=== PATIENT | male | born 1990 | race Caucasian/White ===

== ENCOUNTER 2019-06-10 13:39 | Emergency (ER) | payer BC, OTHER ==
[2019-06-10] MEDS ORDERED: Sodium Chloride 0.9% 10 ML Syringe FLUSH PRN (13:51)
[2019-06-10 13:55] VITALS: BP 139/89; PULSE 95
[2019-06-10] MEDS ORDERED: Iopamidol 755 Mg/ML 100 ML Bottle IVPUSH ONE (13:59)
[2019-06-10] MEDS ORDERED: Sodium Chloride 0.9% 10 ML Syringe FLUSH ONE (13:59)
--- NOTE | 2019-06-10 14:31 | EDM.PDOC ---
ED HPI GENERAL MEDICAL PROBLEM - General Chief Complaint: Trauma Stated Complaint: BODY INJURY/WORK RELATED Time Seen by Provider: 06/10/19 13:48 Source of Information: Reports: Patient History Limitations: Reports: No Limitations - History of Present Illness INITIAL COMMENTS - FREE TEXT/NARRATIVE: The patient presents with trauma. 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 He does not think he was knocked out. He He does have neck pain, low back pain, chest pain and upper abdominal pain. He has no arm or leg pain. He has no medical problems. He has allergies to anesthesia. He has no fever or chills. He has no numbness or weakness. Onset: Sudden Duration: Minutes: Location: Reports: Neck, Chest, Abdomen, Back, Pelvis Quality: Reports: Sharp Severity: Severe Improves with: Reports: Immobilization Worsens with: Reports: Movement Context: Reports: Trauma (Hit by a 400lbs weight) Associated Symptoms: Reports: Chest Pain. Denies: Cough, Fever/Chills, Headaches, Nausea/Vomiting, Shortness of Breath Back Pain Score (Numeric/FACES): 7 - Related Data Allergies Allergy/AdvReac Type Severity Reaction Status Date / Time Anesthesia Allergy Seizure Uncoded 09/15/18 17:47 CDT Home Meds: Home Meds . [No Known Home Meds] 01/15/19 [History] Past Medical History - Past Health History Medical/Surgical History: Denies Medical/Surgical History HEENT History: Reports: None Cardiovascular History: Reports: None Respiratory History: Reports: None Gastrointestinal History: Reports: None Genitourinary History: Reports: None Musculoskeletal History: Reports: None Neurological History: Reports: None Psychiatric History: Reports: Anxiety, Depression, Suicidal Ideation Endocrine/Metabolic History: Reports: None Hematologic History: Reports: None Immunologic History: Reports: None Oncologic (Cancer) History: Reports: None Dermatologic History: Reports: None - Infectious Disease History Infectious Disease History: Reports: Chicken Pox - Past Surgical History Head Surgeries/Procedures: Reports: None HEENT Surgical History: Reports: Tonsillectomy Social & Family History - Family History Family Medical History: Noncontributory - Caffeine Use Caffeine Use: Reports: Coffee Caffeine Use Comment: 1cup every other day Review of Systems - Review of Systems Review Of Systems: See Below Constitutional: Reports: No Symptoms Eyes: Reports: No Symptoms Ears: Reports: No Symptoms Nose: Reports: No Symptoms Mouth/Throat: Reports: No Symptoms Respiratory: Reports: No Symptoms Cardiovascular: Reports: Chest Pain GI/Abdominal: Reports: No Symptoms Genitourinary: Reports: No Symptoms Musculoskeletal: Reports: Neck Pain, Back Pain Skin: Reports: No Symptoms Neurological: Reports: No Symptoms ED EXAM, GENERAL - Physical Exam Exam: See Below Exam Limited By: No Limitations General Appearance: Alert, No Apparent Distress Ears: Other (Pain upon palpation behind the left ear) Nose: Normal Inspection Head: Other (Pain upon palpation behind the left ear) Neck: Tender Lateral, Tender Midline Respiratory/Chest: No Respiratory Distress, Lungs Clear, Normal Breath Sounds, Other (Equal breath sounds) Cardiovascular: Regular Rate, Rhythm, No Edema, No Murmur, Other (Pain upon palpation to the left and right chest with no crepitus) GI/Abdominal: Soft, No Organomegaly, No Mass, Tender (Mild to moderate tenderness to the upper abdomen) Course - Vital Signs Last Recorded V/S: Last Vital Signs Temp 98.2 F 06/10/19 13:53 Pulse 95 06/10/19 13:53 Resp 16 06/10/19 13:53 BP 139/89 06/10/19 13:53 Pulse Ox 95 06/10/19 13:53 - Orders/Labs/Meds Orders: Active Orders 24 hr Category Date Time Status Cardiac Monitoring [RC] . DIRECTED Care 06/10/19 13:51 Active Peripheral IV Care [RC] . DIRECTED Care 06/10/19 13:51 Active CBC WITH AUTO DIFF [HEME] Stat Lab 06/10/19 14:00 Results Sodium Chloride 0.9% [Saline Flush] Med 06/10/19 13:51 Active 10 ml FLUSH ASDIRECTED PRN Peripheral IV Insertion Adult [OM.PC] Stat Oth 06/10/19 13:51 Ordered Medication Orders Sodium Chloride (Saline Flush) 10 ml FLUSH ASDIRECTED PRN PRN Reason: Keep Vein Open Last Admin: 06/10/19 14:32 Dose: 10 ml Labs: Laboratory Tests 06/10/19 06/10/19 Range/Units 14:00 14:00 WBC 12.86 H (4.23-9.07) K/mm3 RBC 5.30 (4.63-6.08) M/mm3 Hgb 15.0 (13.7-17.5) gm/dl Hct 42.9 (40.1-51.0) % MCV 80.9 (79.0-92.2) fl MCH 28.3 (25.7-32.2) pg MCHC 35.0 (32.2-35.5) g/dl RDW Std Deviation 38.1 (35.1-43.9) fL Plt Count 342 H (163-337) K/mm3 MPV 9.1 L (9.4-12.3) fl Neut % (Auto) 65.5 (34.0-67.9) % Lymph % (Auto) 25.7 (21.8-53.1) % [place] % (Auto) 7.5 (5.3-12.2) % Eos % (Auto) 0.6 L (0.8-7.0) Baso % (Auto) 0.3 (0.1-1.2) % Neut # (Auto) 8.43 H (1.78-5.38) K/mm3 Lymph # (Auto) 3.30 (1.32-3.57) K/mm3 [place] # (Auto) 0.96 H (0.30-0.82) K/mm3 Eos # (Auto) 0.08 (0.04-0.54) K/mm3 Baso # (Auto) 0.04 (0.01-0.08) K/mm3 Sodium 137 (136-145) mEq/L Potassium 3.8 (3.5-5.1) mEq/L Chloride 102 (98-107) mEq/L Carbon Dioxide 23 (21-32) mEq/L Anion Gap 15.8 H (5-15) BUN 16 (7-18) mg/dL Creatinine 1.2 (0.7-1.3) mg/dL Est Cr Clr Drug Dosing 87.88 mL/min Estimated GFR (MDRD) > 60 (>60) mL/min BUN/Creatinine Ratio 13.3 L (14-18) Glucose 108 H (74-106) mg/dL Calcium 9.2 (8.5-10.1) mg/dL Total Bilirubin 0.2 (0.2-1.0) mg/dL AST 26 (15-37) U/L ALT 43 (16-63) U/L Alkaline Phosphatase 87 (46-116) U/L Total Protein 8.2 (6.4-8.2) g/dl Albumin 4.1 (3.4-5.0) g/dl Globulin 4.1 gm/dL Albumin/Globulin Ratio 1.0 (1-2) Lipase 72 L (73-393) U/L Ethyl Alcohol 0.00 (0.00) gm% Meds: Medications Generic Name Dose Route Start Last Admin Trade Name Freq PRN Reason Stop Dose Admin Sodium Chloride 10 ml 06/10/19 13:51 06/10/19 14:32 Saline Flush FLUSH 10 ml ASDIRECTED PRN Administration Keep Vein Open Discontinued Medications Generic Name Dose Route Start Last Admin Trade Name Freq PRN Reason Stop Dose Admin Iopamidol 100 ml 06/10/19 13:59 06/10/19 14:32 Isovue-370 (76%) IVPUSH 06/10/19 14:00 100 ml ONETIME ONE Administration Sodium Chloride 10 ml 06/10/19 13:59 06/10/19 15:03 Saline Flush FLUSH 06/10/19 14:00 10 ml ONETIME ONE Administration - Re-Assessments/Exams Free Text/Narrative Re-Assessment/Exam: 06/10/19 14:34 I ordered an IV saline lock, labs, UA, CT of his head, cervical spine, chest, abdomen and pelvis. 06/10/19 15:19 His WBC was elevated at 12.86. His anion gap is elevated at 15.8. His lipase is low at 72. His ETOH is 0. The CT of his chest shows nothing acute. The CT of his abdomen and pelvis shows nothing acute. Two adjacent nonobstructing calculi within the right kidney. Fat containing left inguinal hernia. The CT of the cervical spine shows detail slightly limited due to body habitus. Nothing acute is appreciated on CT study of the cervical spine. The CT of his head shows nothing acute. There were no acute changes on CTs. I will discharge him home. Departure - Departure Time of Disposition: 15:25 Disposition: Home, Self-Care 01 Condition: Good Clinical Impression: Kidney stone on right side, Left inguinal hernia Head injury Qualifiers: Encounter type: initial encounter Qualified Code(s): S09.90XA - Unspecified injury of head, initial encounter Cervical strain Qualifiers: Encounter type: initial encounter Qualified Code(s): S16.1XXA - Strain of muscle, fascia and tendon at neck level, initial encounter Chest wall contusion Qualifiers: Encounter type: initial encounter Laterality: unspecified laterality Qualified Code(s): S20.219A - Contusion of unspecified front wall of thorax, initial encounter Lumbar strain Qualifiers: Encounter type: initial encounter Qualified Code(s): S39.012A - Strain of muscle, fascia and tendon of lower back, initial encounter Abdominal wall contusion Qualifiers: Encounter type: initial encounter Qualified Code(s): S30.1XXA - Contusion of abdominal wall, initial encounter - Discharge Information *PRESCRIPTION DRUG MONITORING PROGRAM REVIEWED*: Not Applicable *COPY OF PRESCRIPTION DRUG MONITORING REPORT IN PATIENT IAN: Not Applicable Referrals: PCP,None [Primary Care Provider] - Sam Monahan PA-C [Physician Development Intern] - 1 Week Forms: ED Department Discharge, ED Return to Work/School Form Additional Instructions: Take tylenol or motrin for pain. Drink plenty of water. Ice the areas that hurt for 15 minutes 3 times per day for 2 to 3 days. Please return if you are worse. Sepsis Event Note - Evaluation Sepsis Screening Result: No Definite Risk - Focused Exam Vital Signs: Vital Signs Temp Pulse Resp BP Pulse Ox 06/10/19 13:53 98.2 F 95 16 139/89 95 Date Exam was Performed: 06/10/19 Time Exam was Performed: 15:23 - My Orders Last 24 Hours: My Active Orders 06/10/19 13:51 Cardiac Monitoring [RC] . DIRECTED Peripheral IV Care [RC] . DIRECTED Sodium Chloride 0.9% [Saline Flush] 10 ml FLUSH ASDIRECTED PRN Peripheral IV Insertion Adult [OM.PC] Stat 06/10/19 14:00 CBC WITH AUTO DIFF [HEME] Stat - Assessment/Plan Last 24 Hours: My Active Orders 06/10/19 13:51 Cardiac Monitoring [RC] . DIRECTED Peripheral IV Care [RC] . DIRECTED Sodium Chloride 0.9% [Saline Flush] 10 ml FLUSH ASDIRECTED PRN Peripheral IV Insertion Adult [OM.PC] Stat 06/10/19 14:00 CBC WITH AUTO DIFF [HEME] Stat
--- NOTE | 2019-06-10 15:06 | CT ---
CT cervical spine Technique: Multiple axial sections were obtained from above C1 level inferiorly through the bottom of T2. Reconstructed sagittal and coronal images were obtained. Findings: Details within the mid and lower cervical spine are diminished due to body habitus. Comparison: No prior cervical spine imaging. Findings: Vertebral body heights are maintained. Disc spaces are fairly well preserved. No discrete fracture or abnormal subluxation is seen. No bony central or bony neural foraminal stenosis is seen. Impression: 1. Detail slightly limited due to body habitus. 2. Nothing acute is appreciated on CT study of the cervical spine. Diagnostic code #2
--- NOTE | 2019-06-10 15:06 | CT ---
CT chest Technique: Multiple axial sections were obtained from above the lung apices inferiorly through the lung bases. Intravenous contrast was utilized. Comparison: No prior chest imaging. Findings: Aorta and pulmonary arteries appear normally opacified. No aneurysm is identified. Mediastinum and hilar regions appear within normal limits. No mediastinal hematoma is seen. Slight increased density within the superior mediastinum is seen felt to represent residual thymic tissue. No axillary adenopathy is seen. Lungs show no acute parenchymal change. No pulmonary contusion or pleural effusions are seen. No pneumothorax is identified. Bone window settings were reviewed no acute osseous finding is appreciated. Impression: 1. Nothing acute is seen on CT study of the chest. Diagnostic code #1 CT abdomen and pelvis Technique: Multiple axial sections were obtained from above the dome of the diaphragm inferiorly through the pubic symphysis. Intravenous contrast was utilized. No oral contrast has been given. Comparison: No prior abdominal imaging. Findings: Liver contains no focal abnormality. Spleen appears within normal limits. Adrenal glands show no nodule. Pancreas is within normal limits. Kidneys show symmetric contrast enhancement. Several nonobstructing calculi are seen within the right kidney. Gallbladder contains no calcified gallstones. Aorta shows no aneurysm. No retroperitoneal adenopathy or mesenteric abnormalities are seen. No pelvic mass or adenopathy is seen. No free fluid or inflammatory change is seen. Fat-containing left inguinal hernia is noted. Appendix is seen and is normal in size. Delayed images show contrast within the distal ureters and within the bladder. Bone window settings were reviewed which show no acute osseous finding. Impression: 1. Nothing acute is appreciated on CT study of the abdomen and pelvis. 2. Two adjacent nonobstructing calculi within the right kidney. 3. Fat-containing left inguinal hernia. Diagnostic code #2 This report was dictated in [place] Standard Time
--- NOTE | 2019-06-10 15:07 | CT ---
Head CT Technique: Multiple axial sections through the brain were obtained. Intravenous contrast was not utilized. Comparison: No prior intracranial imaging. Findings: Ventricles along with basal cisterns and sulci over the convexities are within normal limits for the patient's age. No abnormal parenchymal densities are seen. No evidence of intracranial hemorrhage. No midline shift or mass effect is seen. Bone window settings were reviewed. Visualized paranasal sinuses and mastoid sinuses are clear. No acute calvarial abnormality is appreciated. Impression: 1. Nothing acute is appreciated on noncontrast head CT exam. Diagnostic code #1 This report was dictated in [place] Standard Time
--- NOTE | 2019-06-10 15:07 | CT ---
CT lumbar spine Technique: Multiple axial sections through the lumbar spine were obtained. Reconstructed coronal and sagittal images were reviewed. Findings: Slight posterior disc bulge at L5-S1 which is believed to be physiologic. Posterior discs are otherwise contained. Vertebral body heights are maintained. No fracture or subluxation is seen. Impression: 1. Nothing acute is seen on CT study of the lumbar spine. Diagnostic code #1 This report was dictated in [place] Standard Time
== END 2019-06-10 15:43 | disposition home or self-care (01) ==
LOC: JD.ED 13:39
DX: S09.90XA Unspecified injury of head, initial encounter (principal); S16.1XXA Strain of muscle, fascia and tendon at neck level, initial encounter; S39.012A Strain of muscle, fascia and tendon of lower back, initial encounter; S20.219A Contusion of unspecified front wall of thorax, initial encounter; S30.1XXA Contusion of abdominal wall, initial encounter; K40.90 Unilateral inguinal hernia, without obstruction or gangrene, not specified as recurrent; N20.0 Calculus of kidney; Z88.4 Allergy status to anesthetic agent; Z98.890 Other specified postprocedural states; W31.9XXA Contact with unspecified machinery, initial encounter; Y99.0 Civilian activity done for income or pay
CPT/HCPCS: 36415; 70450; 71260; 72125; 72131; 74177; 80053; 80320; 83690; 85025; 99285; Q9967; 99284; G0480

== ENCOUNTER 2019-06-27 01:24 | Emergency (ER) | payer BC ==
[2019-06-27 01:34] VITALS: BP 139/91; PULSE 64
--- NOTE | 2019-06-27 01:46 | EDM.PDOC ---
ED HPI GENERAL MEDICAL PROBLEM - General Chief Complaint: Chest Pain Stated Complaint: CHEST PAIN Time Seen by Provider: 06/27/19 01:37 - History of Present Illness INITIAL COMMENTS - FREE TEXT/NARRATIVE: 28-year-old male presents to the emergency room with chest pain. This is been going on all yesterday and into this morning. It became worse this evening. He is not coughing but bringing up a little bit of blood-tinged sputum. He does not feel nauseated. He is not had any fevers or chills he has not noticed any black or tarry stools. He has not noticed any adolfo blood in his BMs. The patient has not had problems like this in the past. Middle Chest Pain Score (Numeric/FACES): 8 - Related Data Allergies Allergy/AdvReac Type Severity Reaction Status Date / Time Anesthesia Allergy Seizure Uncoded 06/27/19 01:35 Home Meds: Home Meds Pantoprazole Sodium [Protonix] 40 mg PO ASDIRECTED #30 tablet. 06/27/19 [Rx] Sucralfate [Carafate] 1 gm PO ASDIRECTED #24 tablet 06/27/19 [Rx] Past Medical History - Past Health History Medical/Surgical History: Denies Medical/Surgical History HEENT History: Reports: None Cardiovascular History: Reports: None Respiratory History: Reports: None Gastrointestinal History: Reports: None Genitourinary History: Reports: None Musculoskeletal History: Reports: None Neurological History: Reports: None Psychiatric History: Reports: Anxiety, Depression, Suicidal Ideation Endocrine/Metabolic History: Reports: None Hematologic History: Reports: None Immunologic History: Reports: None Oncologic (Cancer) History: Reports: None Dermatologic History: Reports: None - Infectious Disease History Infectious Disease History: Reports: Chicken Pox - Past Surgical History Head Surgeries/Procedures: Reports: None HEENT Surgical History: Reports: Tonsillectomy Social & Family History - Family History Family Medical History: Noncontributory - Caffeine Use Caffeine Use: Reports: Coffee Caffeine Use Comment: 1cup every other day ED ROS GENERAL - Review of Systems Review Of Systems: See Below Constitutional: Reports: No Symptoms HEENT: Reports: No Symptoms Respiratory: Reports: No Symptoms Cardiovascular: Reports: No Symptoms Endocrine: Reports: No Symptoms GI/Abdominal: Denies: Anorexia, Black Stool, Bloody Stool, Decreased Appetite, Hematemesis, Hematochezia : Reports: No Symptoms Musculoskeletal: Reports: No Symptoms ED EXAM, GENERAL - Physical Exam Exam: See Below Exam Limited By: No Limitations General Appearance: Alert, No Apparent Distress Head: Atraumatic, Normocephalic Neck: Normal Inspection, Supple, Non-Tender, Full Range of Motion. No: Lymphadenopathy (L), Lymphadenopathy (R) Respiratory/Chest: No Respiratory Distress, Lungs Clear, Normal Breath Sounds Cardiovascular: Regular Rate, Rhythm, No Edema, No Murmur GI/Abdominal: Normal Bowel Sounds, Soft, Other (The patient has marked tenderness in the epigastric area to a lesser degree the right and left upper quadrants. No lower quadrant discomfort no rigidity rebound or guarding.) Back Exam: Normal Inspection. No: CVA Tenderness (L), CVA Tenderness (R) Extremities: Normal Inspection Course - Vital Signs Last Recorded V/S: Last Vital Signs Temp 36.6 C 06/27/19 01:31 Pulse 64 06/27/19 01:31 Resp 13 06/27/19 01:31 BP 139/91 H 06/27/19 01:31 Pulse Ox 96 06/27/19 01:31 - Orders/Labs/Meds Orders: Active Orders 24 hr Category Date Time Status EKG 12 Lead [EKG Documentation Completion] [RC] URGENT Care 06/27/19 01:47 Active Labs: Laboratory Tests 06/27/19 06/27/19 06/27/19 Range/Units 01:55 01:55 01:55 WBC 10.30 H (4.23-9.07) K/mm3 RBC 5.19 (4.63-6.08) M/mm3 Hgb 14.7 (13.7-17.5) gm/dl Hct 42.3 (40.1-51.0) % MCV 81.5 (79.0-92.2) fl MCH 28.3 (25.7-32.2) pg MCHC 34.8 (32.2-35.5) g/dl RDW Std Deviation 38.1 (35.1-43.9) fL Plt Count 309 (163-337) K/mm3 MPV 8.8 L (9.4-12.3) fl Neutrophils % (Manual) 61 H (40-60) % Band Neutrophils % 0 (0-10) % Lymphocytes % (Manual) 29 (20-40) % Atypical Lymphs % 0 % Monocytes % (Manual) 9 (2-10) % Eosinophils % (Manual) 1 (0.8-7.0) % Basophils % (Manual) 0 L (0.2-1.2) Platelet Estimate Adequate RBC Morph Comment Normal D-Dimer, Quantitative 0.24 (0.19-0.50) mg/L Sodium 137 (136-145) mEq/L Potassium 3.9 (3.5-5.1) mEq/L Chloride 101 (98-107) mEq/L Carbon Dioxide 27 (21-32) mEq/L Anion Gap 12.9 (5-15) BUN 16 (7-18) mg/dL Creatinine 1.0 (0.7-1.3) mg/dL Est Cr Clr Drug Dosing 105.45 mL/min Estimated GFR (MDRD) > 60 (>60) mL/min BUN/Creatinine Ratio 16.0 (14-18) Glucose 99 (74-106) mg/dL Calcium 10.1 (8.5-10.1) mg/dL Total Bilirubin 0.2 (0.2-1.0) mg/dL AST 11 L (15-37) U/L ALT 40 (16-63) U/L Alkaline Phosphatase 80 (46-116) U/L Troponin I < 0.017 (0.00-0.056) ng/mL Total Protein 7.6 (6.4-8.2) g/dl Albumin 3.7 (3.4-5.0) g/dl Globulin 3.9 gm/dL Albumin/Globulin Ratio 1.0 (1-2) Lipase 74 (73-393) U/L Meds: Medications Discontinued Medications Generic Name Dose Route Start Last Admin Trade Name Freq PRN Reason Stop Dose Admin Al Hydroxide/Mg Hydroxide 30 0 ml 06/27/19 01:47 06/27/19 01:56 ml/ Lidocaine HCl 15 ml PO 06/27/19 01:48 45 ml ONETIME ONE Administration Pantoprazole Sodium 40 mg 06/27/19 03:20 Protonix PO 06/27/19 03:21 ONETIME ONE Sucralfate 1 gm 06/27/19 02:15 06/27/19 02:32 Carafate PO 06/27/19 02:16 1 gm ONETIME ONE Administration - Re-Assessments/Exams Free Text/Narrative Re-Assessment/Exam: 06/27/19 03:22 Laboratory evaluation is unrevealing EKG does not show any acute changes. D- dimer negative troponin negative. Patient had significant improvement after GI cocktail he had further improvement after the Carafate he is pain-free at this time will discharge Departure - Departure Time of Disposition: 03:22 Disposition: Home, Self-Care 01 Clinical Impression: Gastroesophageal reflux disease - Discharge Information Prescriptions: Pantoprazole Sodium [Protonix] 40 mg PO ASDIRECTED #30 tablet. Sucralfate [Carafate] 1 gm PO ASDIRECTED #24 tablet Referrals: PCP,None [Primary Care Provider] - Forms: ED Department Discharge Additional Instructions: Return to the emergency room with any questions problems or worsening symptoms. Follow-up in the hospital clinic this next week for recheck [phone]. You will be on Carafate for 6 days take at 1 just before your morning midday and evening meals and again at bedtime. Take the Protonix 60 minutes before your morning meal. After you finish the Carafate you can take it 30 to 60 minutes before your morning meal. Sepsis Event Note - Evaluation Sepsis Screening Result: No Definite Risk - Focused Exam Vital Signs: Vital Signs Temp Pulse Resp BP Pulse Ox 06/27/19 01:31 36.6 C 64 13 139/91 H 96 Date Exam was Performed: 06/27/19 Time Exam was Performed: 03:22 - My Orders Last 24 Hours: My Active Orders 06/27/19 01:47 EKG 12 Lead [EKG Documentation Completion] [RC] URGENT - Assessment/Plan Last 24 Hours: My Active Orders 06/27/19 01:47 EKG 12 Lead [EKG Documentation Completion] [RC] URGENT
[2019-06-27] MEDS ORDERED: Alum Hydrox/Mag Hydrox/Simeth 30 ML, Lidocaine 2% 15 ML PO ONE ×2 (01:47)
[2019-06-27] MEDS ORDERED: Sucralfate Suspension 1 GM/10 ML Cup PO ONE (02:15)
[2019-06-27] MEDS ORDERED: Pantoprazole 40 MG Tab.CR PO ONE (03:20)
== END 2019-06-27 03:36 | disposition home or self-care (01) ==
LOC: JD.ED 01:24
DX: K21.9 Gastro-esophageal reflux disease without esophagitis (principal); Z88.4 Allergy status to anesthetic agent
CPT/HCPCS: 36415; 80053; 83690; 84484; 85007; 85027; 85379; 93005; 99285; A9270; 93010; 99283

== ENCOUNTER 2019-08-24 09:43 | Day surgery (SDC) | payer SELFPAY ==
[~2019-08-24 09:43] MED LIST: Lidocaine 1%/Sod Bicarbonate in NS 8.4% 1 ML Syringe IDERM PRN; Sodium Chloride 0.9% 10 ML Syringe FLUSH PRN
[2019-08-24] MEDS: Lactated Ringers 1,000 ML IV SCH ×2 (10:15→14:13)
--- NOTE | 2019-08-24 10:32 | PCM.PREANE ---
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), Other (see below) (seizures) Family History of Anesthesia Reaction: Yes Transfusion History: No Prior Transfusion(s) - Review of Systems General: No Symptoms Pulmonary: Cough Cardiovascular: No Symptoms Gastrointestinal: No Symptoms Neurological: No Symptoms Other: Reports: None - Physical Assessment NPO Status Date: 08/23/19 ASA Class: 2 Mental Status: Alert & Oriented x3 Airway Class: Mallampati = 2 Dentition: Reports: Normal Dentition, Broken Tooth/Teeth Thyro-Mental Finger Breadths: 3 Mouth Opening Finger Breadths: 3 ROM/Head Extension: Full Lungs: Clear to Auscultation, Normal Respiratory Effort Cardiovascular: Regular Rate, Regular Rhythm - Allergies Allergies/Adverse Reactions: Allergies Allergy/AdvReac Type Severity Reaction Status Date / Time Anesthesia Allergy Seizure Uncoded 06/27/19 01:35 - Acknowledgements Anesthesia Type Planned: General Anesthesia, MAC Pt an Appropriate Candidate for the Planned Anesthesia: Yes Alternatives and Risks of Anesthesia Discussed w Pt/Guardian: Yes Pt/Guardian Understands and Agrees with Anesthesia Plan: Yes PreAnesthesia Questionnaire - Past Health History Medical/Surgical History: Denies Medical/Surgical History Neurological History: Reports: None Other Neuro History: 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 06/27/19 [Rx] Sucralfate [Carafate] 1 gm PO ASDIRECTED #24 tablet 06/27/19 [Rx] - CURRENT (IN HOUSE) MEDS Current Meds: Current Medications Lactated Ringer's (Ringers, Lactated) 1,000 mls @ 125 mls/hr IV ASDIRECTED GRAHAM Stop: 08/24/19 23:00 Lidocaine/Sodium Bicarbonate (Buffered Lidocaine 1% In Ns 8.4%) 0.25 ml IDERM ONETIME PRN PRN Reason: Prior to IV Start Stop: 08/24/19 18:00 Sodium Chloride (Saline Flush) 10 ml FLUSH ASDIRECTED PRN PRN Reason: Keep Vein Open Stop: 08/24/19 18:00
[2019-08-24] MEDS ORDERED: fentaNYL 250 MCG/5 ML SDV ONE (11:23)
[2019-08-24] MEDS ORDERED: Dexamethasone 4 MG/ML 5 ML MDV ONE (11:23)
[2019-08-24] MEDS ORDERED: Propofol 200 MG/20 ML SDV ONE ×4 (11:23→13:10)
[2019-08-24] MEDS ORDERED: Midazolam 1 MG/ML 2 ML SDV ONE ×2 (11:23→11:26)
[2019-08-24] MEDS ORDERED: Ondansetron 4 MG/2 ML SDV ONE ×2 (11:23→11:40)
[2019-08-24] MEDS ORDERED: ceFAZolin 1 GM Vial ONE (11:23)
[2019-08-24] MEDS ORDERED: Ketorolac 30 MG/ML SDV ONE (11:23)
[2019-08-24] MEDS ORDERED: Lidocaine 1% 4 ML ONE (11:23)
[2019-08-24] MEDS ORDERED: Vancomycin 2 GM in Sodium Chloride 0.9% 500 ML IV ONE (11:30)
[2019-08-24] MEDS ORDERED: Ketamine 500 mg/10 ML MDV ONE (12:14)
[2019-08-24] MEDS: Bupivacaine 0.5%/EPINEPHrine 1:200,000 50 ML MDV ONE ×2 (12:24→12:35)
[2019-08-24] MEDS ORDERED: HYDROmorphone 0.5 MG/0.5 ML Syringe ONE (13:16)
--- NOTE | 2019-08-24 13:45 | PCM.PRNOTE ---
- Free Text/Narrative Note: Date: 08/24/2019 Operation: open left inguinal hernia repair with permanent mesh placement Surgeon: Jeremiah Campbell MD Operative findings: reducible direct left inguinal hernia. Ilioinguinal nerve identified and preserved. Detailed Report: The patient was taken to the operating room and placed supine on the table. Time out was performed and general endotracheal anesthesia initiated. The abdomen and groin region were prepped and draped in sterile fashion. A total of 20 cc 0.5% marcaine with epinephrine was injected intradermally and in the subcutaneous space overlying the inguinal canal. A linear incision measuring 7 cm in length was made along the projection of the inguinal ligament, between the anterior superior iliac spine and the pubic tubercle. Dissection was carried down to the external oblique aponeurosis. An additional 10 cc of local anesthetic was injected just deep to the fibers, into the inguinal canal. A stab incision with the 15 blade scalpel through the aponeurosis, and Metzenbaum scissors were passed deep to the fibers and used to bluntly separate the underlying spermatic cord. Scissors were then used to sharply divide the roof of the inguinal canal, and clamps were placed on the fascia. Self-retaining retractors were placed to aid with optimal exposure, with the spermatic cord in view. The ilioinguinal nerve was identified and preserved. A large right angle clamp was passed deep to the cord at the level of the pubic tubercle, and a inch betsy drain was placed, encircling the cord structures and hernia sac. Blunt dissection was used to split the cremasteric fibers anchoring the cord to the floor of the canal. The hernia sac was then carefully from the cord, working distal to proximal. The sac was not very large, and had a wide mouth. This was easily reduced for mesh placement. Next, a piece of Progrip permanent lightweight mesh was cut to size and placed to reconstruct the floor of the inguinal canal. An anchoring prolene stitch was placed at the inferomedial aspect at the insertion of the rectus muscle to the pubic bone. Good medial and inferior overlap, 2 cm, at the tubercle was ensured. The lateral aspect of the mesh was then sewn to the shelving edge of the inguinal ligament with running prolene suture. The mesh was cut to permit passage of the cord, and the internal ring was recreated by stitching the mesh back together securely around the cord, with enough space to permit passage of the tip of the little finger. With the mesh laying nice and flat, the leaflets of the external oblique aponeurosis were closed using interrupted vicryl suture. Gabriela fascia was closed in identical fashion, and the skin was closed with an absorbable running subcuticular stitch and dressed with dermabond. An additional 30 cc of local anesthetic was injected around the incision and for regional nerve block just superior and medial to the left anterior superior iliac spine. After removal of the drapes, the left testicle was confirmed to be in proper descending position within the scrotum. Jeremiah Campbell MD General Surgery
[2019-08-24] MEDS ORDERED: HYDROmorphone 0.5 MG/0.5 ML Syringe IVPUSH PRN (13:59)
[2019-08-24] MEDS ORDERED: fentaNYL 100 MCG/2 ML SDV IVPUSH PRN (13:59)
--- NOTE | 2019-08-24 14:01 | PCM.POSTAN ---
POST ANESTHESIA ASSESSMENT - MENTAL STATUS Mental Status: Somnolent - VITAL SIGNS Vital Signs: Last Vital Signs Temp 98.1 F 08/24/19 13:39 Pulse 79 08/24/19 10:00 Resp 17 08/24/19 13:50 BP 117/74 08/24/19 13:50 Pulse Ox 92 L 08/24/19 13:50 - RESPIRATORY Respiratory Status: Respiratory Rate WNL, Airway Patent, O2 Saturation Stable, Supplemental Oxygen - CARDIOVASCULAR CV Status: Pulse Rate WNL, Blood Pressure Stable - GASTROINTESTINAL GI Status: No Symptoms - PAIN Pain Score: 0 - POST OP HYDRATION Hydration Status: Adequate & Stable
[2019-08-24] MEDS ORDERED: Lactated Ringers 1,000 ML ONE (14:05)
[2019-08-24] MEDS ORDERED: oxyCODONE 5 MG Tab PO PRN (14:26)
--- NOTE | 2019-08-24 14:55 | PCM48HPAN ---
Post Anesthesia Note - EVALUATION WITHIN 48HRS OF ANESTHETIC Vital Signs in Normal Range: Yes Patient Participated in Evaluation: Yes Respiratory Function Stable: Yes Airway Patent: Yes Cardiovascular Function Stable: Yes Hydration Status Stable: Yes Pain Control Satisfactory: Yes Nausea and Vomiting Control Satisfactory: Yes Mental Status Recovered: Yes Vital Signs: Last Vital Signs Temp 97.7 F 08/24/19 14:35 Pulse 79 08/24/19 10:00 Resp 14 08/24/19 14:35 BP 120/97 H 08/24/19 14:35 Pulse Ox 95 08/24/19 14:35
[2019-08-24 15:28] VITALS: BP 120/96; PULSE 86
== END 2019-08-24 15:20 | disposition home or self-care (01) ==
LOC: JD.SDS 09:43
PROVIDERS: ATTEND Surgery
DX: K40.90 Unilateral inguinal hernia, without obstruction or gangrene, not specified as recurrent (principal); F41.9 Anxiety disorder, unspecified; F32.9 Major depressive disorder, single episode, unspecified; Z88.4 Allergy status to anesthetic agent; Z87.891 Personal history of nicotine dependence
CPT/HCPCS: 82962; A9270-GY; C1781; J0690; J1100; J1170; J1885; J2001; J2250; J2405; J2704; J3010; J3370; J3490; J7040; J7120

== ENCOUNTER 2020-02-15 13:01 | Emergency (ER) | payer BC, OTHER ==
[2020-02-15 13:46] VITALS: BP 126/86; PULSE 75
--- NOTE | 2020-02-15 14:24 | EDM.PDOC ---
ED HPI GENERAL MEDICAL PROBLEM - General Chief Complaint: Neurological Problem Stated Complaint: DIZZY,LIGHTHEADED,COUGHING UP BLOOD Time Seen by Provider: 02/15/20 13:49 Source of Information: Reports: Patient History Limitations: Reports: No Limitations - History of Present Illness INITIAL COMMENTS - FREE TEXT/NARRATIVE: The patient presents with lightheadedness and he coughed up some blood. He was at work today and it is hot and muggy. He got dizzy and lightheaded. He feels better now. He did also cough a couple of times and he coughed up some blood. He has no fever, chills, chest pain, shortness of breath, abdominal pain, nausea or vomiting. This has never happened before. He has no medical problems. 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 was an infnt Psychiatric History: Reports: Anxiety, Depression, Suicidal Ideation - Infectious Disease History Infectious Disease History: Reports: Chicken Pox, MRSA - Past Surgical History Head Surgeries/Procedures: Reports: None GI Surgical History: Reports: Hernia, Inguinal Social & Family History - Family History Family Medical History: Noncontributory - Tobacco Use Smoking Status *Q: Current Every Day Smoker Years of Tobacco use: 2 Packs/Tins Daily: 0.1 - Caffeine Use Caffeine Use: Reports: Coffee, Tea Caffeine Use Comment: 1cup every other day - Recreational Drug Use Recreational Drug Use: No ED ROS GENERAL - Review of Systems Review Of Systems: See Below Constitutional: Reports: No Symptoms HEENT: Reports: No Symptoms Respiratory: Reports: No Symptoms Cardiovascular: Reports: Lightheadedness Endocrine: Reports: No Symptoms GI/Abdominal: Reports: No Symptoms : Reports: No Symptoms Musculoskeletal: Reports: No Symptoms ED EXAM, NEURO - Physical Exam Exam: See Below Exam Limited By: No Limitations General Appearance: Alert, No Apparent Distress Ears: Normal External Exam Nose: Normal Inspection Throat/Mouth: Normal Inspection Head Exam: Atraumatic, Normocephalic Neck: Normal Inspection Respiratory/Chest: No Respiratory Distress, Lungs Clear, Normal Breath Sounds Cardiovascular: Regular Rate, Rhythm, No Edema, No Murmur GI/Abdominal: Soft, Non-Tender, No Organomegaly, No Mass Neurological: Alert, No Motor/Sensory Deficits, Oriented x 3 Course - Vital Signs Last Recorded V/S: Last Vital Signs Temp 98.2 F 02/15/20 13:44 Pulse 75 02/15/20 13:44 Resp 20 02/15/20 13:44 BP 126/86 02/15/20 13:44 Pulse Ox 97 02/15/20 13:44 - Orders/Labs/Meds Orders: Active Orders 24 hr Category Date Time Status CXR [Chest 2V] [CR] Stat Exams 02/15/20 13:54 Taken - Re-Assessments/Exams Free Text/Narrative Re-Assessment/Exam: 02/15/20 14:23 The patient is feeling better and does not want an EKG or labs. He did agree to a CXR. His CXR looks good. I will discharge him home. Departure - Departure Time of Disposition: 14:30 Disposition: Home, Self-Care 01 Condition: Good Clinical Impression: Lightheaded, Cough with hemoptysis - Discharge Information *PRESCRIPTION DRUG MONITORING PROGRAM REVIEWED*: Not Applicable *COPY OF PRESCRIPTION DRUG MONITORING REPORT IN PATIENT IAN: Not Applicable Referrals: PCP,None [Primary Care Provider] - Ari Dudley NP [Nurse Practitioner] - 1 Week Forms: ED Department Discharge, ED Return to Work/School Form Additional Instructions: Go hoe and rest. Drink plenty of fluids. Please return if you are worse. Sepsis Event Note (ED) - Evaluation Sepsis Screening Result: No Definite Risk - Focused Exam Vital Signs: Vital Signs Temp Pulse Resp BP Pulse Ox 02/15/20 13:44 98.2 F 75 20 126/86 97 - My Orders Last 24 Hours: My Active Orders 02/15/20 13:54 CXR [Chest 2V] [CR] Stat - Assessment/Plan Last 24 Hours: My Active Orders 02/15/20 13:54 CXR [Chest 2V] [CR] Stat
--- NOTE | 2020-02-15 15:03 | CR ---
Chest: 2 views of the chest were obtained. Comparison: Prior chest CT of 06/10/19 is available. Heart size and mediastinum are normal. Lungs are clear with no acute parenchymal change. Bony structures are unremarkable for the patient's age. Impression: 1. Nothing acute is appreciated on 2 view chest x-ray. Diagnostic code #1 This report was dictated in MDT
== END 2020-02-15 14:40 | disposition home or self-care (01) ==
LOC: JD.ED 13:01
DX: R42 Dizziness and giddiness (principal); R04.2 Hemoptysis; F17.210 Nicotine dependence, cigarettes, uncomplicated; Z88.4 Allergy status to anesthetic agent
CPT/HCPCS: 71046; 71046-26; 99282; 99284-25

== ENCOUNTER 2020-07-15 03:59 | Emergency (ER) | payer OTHER ==
[2020-07-15 04:14] VITALS: BP 146/92; PULSE 83
--- NOTE | 2020-07-15 04:28 | EDM.PDOC ---
ED HPI GENERAL MEDICAL PROBLEM - General Chief Complaint: Respiratory Problem Stated Complaint: BLOOD IN VOMIT Time Seen by Provider: 07/15/20 04:03 Source of Information: Reports: Patient History Limitations: Reports: No Limitations - History of Present Illness INITIAL COMMENTS - FREE TEXT/NARRATIVE: This is a 29-year-old male. He was sleeping tonight and he woke up coughed a couple of times and then coughed up some blood. He says it was quite a bit of blood and it concerned him so he comes to the ER for evaluation. The patient states he does not smoke. He does not use cocaine. The coughing spell has stopped and he is feeling okay. He did have an episode like this once before back in January of last year. He has no history of recent nosebleeds though he has had them in the past. He denies any other acute symptoms. - Related Data Allergies Allergy/AdvReac Type Severity Reaction Status Date / Time Anesthesia Allergy Seizure Uncoded 07/15/20 04:14 Home Meds: Home Meds . [No Known Home Meds] 07/15/20 [History] Past Medical History - Past Health History Medical/Surgical History: Denies Medical/Surgical History Neurological History: Reports: None Other Neuro History: seizures when he was an infnt Psychiatric History: Reports: Anxiety, Depression, Suicidal Ideation - Infectious Disease History Infectious Disease History: Reports: Chicken Pox, MRSA - Past Surgical History Head Surgeries/Procedures: Reports: None HEENT Surgical History: Reports: Tonsillectomy GI Surgical History: Reports: Hernia, Inguinal Social & Family History - Family History Family Medical History: No Pertinent Family History - Tobacco Use Tobacco Use Status *Q: Former Tobacco User Used Tobacco, but Quit: Yes Month/Year Tobacco Last Used: JUNE 2019 - Caffeine Use Caffeine Use: Reports: Coffee, Tea Caffeine Use Comment: 1cup every other day - Recreational Drug Use Recreational Drug Use: No ED ROS GENERAL - Review of Systems Review Of Systems: See Below Constitutional: Denies: Fever, Chills HEENT: Denies: Rhinitis, Throat Pain Respiratory: Reports: Cough, Hemoptysis. Denies: Shortness of Breath Cardiovascular: Reports: No Symptoms Endocrine: Reports: No Symptoms GI/Abdominal: Reports: No Symptoms : Reports: No Symptoms Musculoskeletal: Reports: No Symptoms Skin: Reports: No Symptoms Neurological: Reports: No Symptoms Psychiatric: Reports: No Symptoms ED EXAM, GENERAL - Physical Exam Exam: See Below Exam Limited By: No Limitations General Appearance: Alert, WD/WN, No Apparent Distress Eye Exam: Bilateral Eye: Normal Inspection Ears: Normal External Exam Nose: Other (She has very dry and irritated nasal passage. The left nasal passage on the septum is a scab and bright red blood but no active bleeding noted. He does have a small area on the right nasal passage septum as well.) Throat/Mouth: Normal Inspection, Normal Lips, Normal Oropharynx, Normal Voice, No Airway Compromise, Other (There is no blood in the oropharynx noted) Head: Normocephalic Neck: Supple Respiratory/Chest: No Respiratory Distress, Lungs Clear, Normal Breath Sounds Cardiovascular: Regular Rate, Rhythm, No Murmur Back Exam: Full Range of Motion Extremities: Normal Inspection, Normal Range of Motion Neurological: Alert, Oriented Psychiatric: Normal Affect, Normal Mood Skin Exam: Warm, Dry Course - Vital Signs Last Recorded V/S: Last Vital Signs Temp 97 F 07/15/20 04:12 Pulse 83 07/15/20 04:12 Resp 18 07/15/20 04:12 BP 146/92 H 07/15/20 04:12 Pulse Ox 94 L 07/15/20 04:12 Departure - Departure Time of Disposition: 04:26 Disposition: Home, Self-Care 01 Condition: Good Clinical Impression: Anterior epistaxis, Coughing up blood - Discharge Information *PRESCRIPTION DRUG MONITORING PROGRAM REVIEWED*: Not Applicable *COPY OF PRESCRIPTION DRUG MONITORING REPORT IN PATIENT IAN: Not Applicable Instructions: Nosebleed, [id number] Referrals: PCP,None [Primary Care Provider] - Forms: ED Department Discharge Additional Instructions: Your nose is very dry and it cracked and started bleeding and then you coughed up this blood from your nose, you need to get a vaporizer or humidifier in your room at nighttime to keep moisture in the air so your nose does not dry out and crack and bleed, also use some ointment on a Q-tip and gently coat the inside of your nose in the front part of the nose to keep the moisture in the tissues so they do not crack and bleed, if the bleeding continues or seems to be intermittent then you need to see your family doctor so they can cauterize your nose to stop the bleeding, do not pick at your nose or you will cause further bleeding, return to the ER if needed Sepsis Event Note (ED) - Evaluation Sepsis Screening Result: No Definite Risk - Focused Exam Vital Signs: Vital Signs Temp Pulse Resp BP Pulse Ox 07/15/20 04:12 97 F 83 18 146/92 H 94 L
== END 2020-07-15 04:30 | disposition home or self-care (01) ==
LOC: JD.ED 03:59
DX: R04.0 Epistaxis (principal); R04.2 Hemoptysis; Z88.4 Allergy status to anesthetic agent; Z87.891 Personal history of nicotine dependence
CPT/HCPCS: 99282; 99283